=== PATIENT | male | born 1930 | race Caucasian/White ===

== ENCOUNTER → 2016-12-07 | Day surgery (SDC) | payer MEDICARE, BC ==
[~2016-12-07] MED LIST: AMARYL PO; AMARYL2 MG PO; AMBIEN10 MG PO; AMLODIPINE BESYL5 MG PO; ANEXSIA 7.5/3251 TA1 PO; ASPIRIN81 M1 PO; ASPIRIN81 M2 PO; BACTROBAN15 GM TOP; BRIMONIDINE TART5 ML OP; CATAPRES0.1 MG; CATAPRES0.1 MG PO; CELEBREX PO; COMBIGAN EYE DRO5 ML OU; DITROPAN5 MG PO; FISH OIL 1,0001 CAP PO; FISH OIL 1,0001 EAC1; FISH OIL 1,0001 EAC1 PO; GABAPENTIN800 MG PO; GLUCOPHAGE500 MG PO; GLUMETZA; HYDROCODON-ACE1 EAC1 PO; HYDROCODON-ACE1 EAC4; KEFLEX500 MG PO; LIPITOR PO; LIPITOR20 MG PO; LISINOPRIL PO; LISINOPRIL10 MG PO; MELOXICAM15 MG PO; METFORMIN HCL500 M1 PO; NEURONTIN PO; NORCO 7.5-3251 EACH PO; NORVASC PO; NORVASC10 MG PO; OXYCODON HCL-1 UDTAB; SERTRALINE HCL50 MG PO; VESICARE PO; VICODIN ES 7.51 EAC1 PO; VICODIN HP 10-1 EACH PO
--- NOTE | ~2016-12-07 | OR ---
Unit #: [id number] #: [id number] Patient: ALAN RABAGO [id number] [address] [place], [place] [address] [id number] O MR#: [id number] NAME: ALAN RABAGO ROOM: Date of Procedure: 12/07/2016 Admission Date: 12/07/2016 Surgeon: Joss Mathew M.D. : 1930 Attending Physician: Joss Mathew M.D. Primary Care Physician: Tony Bowser M.D. SURGERY CENTER OPERATIVE NOTE PROCEDURE PERFORMED Lumbar epidural steroid injection under x-ray guided needle placement. PREOPERATIVE DIAGNOSES 1. Acute lumbar radiculitis. 2. Spinal stenosis, lumbosacral spine. 3. Degenerative joint disease, lumbosacral spine. 4. Degenerative disk disease, lumbosacral spine. INDICATIONS FOR PROCEDURE The patient presents today with a longstanding history of chronic lumbar radicular pain which is generally fairly well managed medically with ongoing continuous conservative measures. He does however occasionally experience acute exacerbations, which to date have only responded to epidural steroid injections. His usual amount of relief is 60% to 80% for 6 to 8 weeks whereupon he will develop a crescendo pattern return of his pain to the point that approximately 10 to 12 weeks he begins to experience difficulties with activities of daily living. He presents today with just such a pattern of recurrence which has as per his usual pattern broken to his ongoing continuous conservative measures. After discussing risks and benefits of proceeding today with an L4-L5 lumbar epidural with return date of 03/15/2017, the patient agreed this would be the appropriate of action. He was advised that if he is asymptomatic at the time being scheduled appointment to simply not keep that appointment and to follow up and we could be of further service to him. He was further advised if he reached a point where he felt these shots were ineffective to simply stop taking them and to follow up with his primary and/or referring physician. DESCRIPTION OF PROCEDURE After these discussions, the patient was taken to the operating room, where he was prepped and draped in a sterile manner. Standard monitors were applied. He refused all forms of sedation and lumbar epidural space was accessed at L4-L5 level using loss of resistance technique and x-ray guidance. Needle placement was confirmed with injection of 2 mL of Omnipaque. There was good superior and inferior flow at this L4-L5 level. Following successful needle placement confirmation, the patient received an injectate containing 4 mL of normal saline and 80 mg of methylprednisolone. He tolerated this procedure well. He was discharged home with followup instructions, which include return dates as described above. Unit #: [id number] #: [id number] Patient: ALAN RABAGO Dictated by... Kb Kaur/shaina TD: 12/08/2016 01:22 JOB #: [id number] CC: Christopher Moralez M.D. SURGERY CENTER OPERATIVE NOTE Page 1 of 1 X Vasu Mathew MD X PROCEDURE OPERATIVE NOTE
== END | disposition home or self-care (01) ==
LOC: CCSC 08:15
DX: G89.29 Other chronic pain (principal); M51.17 Intervertebral disc disorders with radiculopathy, lumbosacral region; M47.27 Other spondylosis with radiculopathy, lumbosacral region; M48.07 Spinal stenosis, lumbosacral region; K21.9 Gastro-esophageal reflux disease without esophagitis; Z88.0 Allergy status to penicillin; Z88.5 Allergy status to narcotic agent; Z88.8 Allergy status to other drugs, medicaments and biological substances; Z96.653 Presence of artificial knee joint, bilateral; Z98.41 Cataract extraction status, right eye; Z98.42 Cataract extraction status, left eye; Z98.890 Other specified postprocedural states
CPT/HCPCS: 82947; J1040; J2250

== ENCOUNTER → 2017-02-23 | Outpatient (CLI) | payer MEDICARE, BC ==
--- NOTE | ~2017-02-23 | NM4 ---
[facility] A Service of [facility] & [facility] RADIOLOGY TEXT RESULTS PATIENT: ALAN RABAGO LOCATION: [facility] : 31 UNIT #: [id number] AGE: [address]: Christopher Moralez MD SEX: M ORDER DR: [id number] [facility] [address] [place], [place] [address] [id number] O MR#: [id number] Acc #: [id number] NAME: ALAN RABAGO. : 1930 SEX: M STUDY DATE/TIME: 02/23/2017 9:57 UNIT: [facility] ROOM: STUDY DESCRIPTION: WI Bone or Joint 3 Phase Study Attending Physician: Christopher Moralez M.D. Referring Physician: Christopher Moralez M.D. Ordering Physician: Christopher Moralez M.D. Primary Care Physician: Tony Bowser M.D. MEDICAL IMAGING REPORT This report is preliminary unless electronic signature is present EXAM Three-phase bone scan of the knees and whole-body bone scan 02/23/2017 HISTORY Order states pain status post right total knee replacement. Technologist reports right knee pain for 3 or 4 weeks. Can hardly walk. Fell in the yard 1.5 months ago. Bilateral knee replacements. Right knee replacement 1 year ago. Left knee replacement 2 years ago. History of prostate cancer diagnosed 10 years ago with radiation therapy. COMPARISON Bilateral knee radiographs 02/18/2017 and 09/30/2016. FINDINGS The patient received 30.3 mCi technetium 99m MDP intravenously and vascular flow, blood pool, and delayed images of the knees were obtained. Given the history of prostate cancer, whole body scan was also performed. The vascular flow phase is normal. Phase 2 imaging demonstrates abnormal asymmetric right knee uptake compared to the left, predominating in the periprosthetic tibia and probably the suprapatellar bursal region. The opposite left knee demonstrates some minimal patellofemoral compartment uptake. Delayed-phase imaging demonstrates moderate to marked right tibial periprosthetic uptake which correlates with a tibial periprosthetic lucency and is most compatible with tibial component loosening. There is mild posterior femoral uptake of the right knee probably in the lateral femoral condyle of indeterminate significance. The opposite left knee demonstrates mild medial periprosthetic uptake and mild patellofemoral compartment uptake. There is medial tibial STS. [facility] A Service of [facility] & [facility] RADIOLOGY TEXT RESULTS PATIENT: ALAN RABAGO LOCATION: [facility] : 31 UNIT #: [id number] AGE: [address]: Christopher Moralez MD SEX: M ORDER DR: periprosthetic lucency radiographically and findings could reflect early tibial component loosening on the left. Whole-body images show no evidence of metastatic disease. Mild increased uptake in the left lateral malleolar region is non specific. IMPRESSION 1. Phase 2 and phase 3 positive bone scan of the right knee with the appearance most compatible with tibial component loosening and synovitis. 2. Abnormal uptake in the patellofemoral and medial compartment of the left knee. Findings are concerning for early tibial component loosening on the left. 3. No evidence of metastatic disease. Dictated by... Trinidad Ward M.D. THIS IS AN ELECTRONICALLY VERIFIED REPORT Trinidad Ward M.D. at 02/24/2017 1:49 PM ELISSA/lexii TD: 02/24/2017 13:39 JOB #: [id number] MEDICAL IMAGING REPORT Page 1 of 1 COPY
== END | disposition home or self-care (01) ==
LOC: CNUC 09:10
DX: M25.561 Pain in right knee (principal); R94.8 Abnormal results of function studies of other organs and systems; Z96.651 Presence of right artificial knee joint
CPT/HCPCS: 78315; A9503

== ENCOUNTER → 2017-04-21 | Outpatient (CLI) | payer MEDICARE, BC ==
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
--- NOTE | ~2017-04-21 | CR63 ---
[facility] A Service of [facility] & [facility] RADIOLOGY TEXT RESULTS PATIENT: ALAN RABAGO LOCATION: [facility] : 31 UNIT #: [id number] AGE: [address]: Christopher Moralez MD SEX: M ORDER DR: [id number] [facility] [address] [place], [place] [address] [id number] O MR#: [id number] Acc #: [id number] NAME: ALAN RABAGO. : 1930 SEX: M STUDY DATE/TIME: 04/21/2017 10:47 UNIT: [facility] ROOM: STUDY DESCRIPTION: CR Chest 2 View Attending Physician: Christopher Moralez M.D. Referring Physician: Christopher Moralez M.D. Ordering Physician: Christopher Moralez M.D. Primary Care Physician: Tony Bowser M.D. MEDICAL IMAGING REPORT This report is preliminary unless electronic signature is present EXAM Chest 04/21/2017, [facility] HISTORY 86-year-old male patient preop clearance for failed components right total knee arthroplasty. Patient for revision. COMPARISON Chest 05/08/2015 FINDINGS Two-view chest demonstrates mild cardiomegaly and generalized thoracic aortic ectasia. Hilar structures are preserved. Bilateral lungs are clear. Costophrenic angles are obscured bilaterally. IMPRESSION Atherosclerotic cardiovascular disease with stable cardiomegaly and stable thoracic aortic ectasia. No acute finding. Dictated by... Yandel Blake M.D. THIS IS AN ELECTRONICALLY VERIFIED REPORT Yandel Blake M.D. at 04/22/2017 8:06 AM JBB/joey TD: 04/21/2017 20:56 JOB #: [id number] MEDICAL IMAGING REPORT Page 1 of 1 COPY
--- NOTE | ~2017-04-21 | EKG ---
PATIENT: ALAN RABAGO UNIT #: [id number] Ventricular Rate: 61 BPM Atrial Rate: 61 BPM P-R Interval: 194 ms QRS Duration: 90 ms Q-T Interval: 424 ms QTC Calculation(Bezet): 426 ms Calculated R Winfield: -178 degrees Calculated T W[place]: 152 degrees Diagnosis Line: Normal sinus rhythm Diagnosis Line: Right superior axis deviation Diagnosis Line: Abnormal ECG Diagnosis Line: When compared with ECG of 13-JUN-2014 09:00, Diagnosis Line: Questionable change in QRS axis Diagnosis Line: Criteria for Inferior infarct are no longer Diagnosis Line: Present Diagnosis Line: T wave inversion no longer evident in Inferior Diagnosis Line: leads Diagnosis Line: T wave inversion now evident in Lateral leads Diagnosis Line: Confirmed by JIE CASTELLANOS MD ([id number]) on Diagnosis Line: 04/23/2017 10:49:11 AM INTERPRETING MD: EMANUEL SILVA
[2017-04-21 09:08] LABS: URINE APPEARANCE CLEAR; URINE BILIRUBIN NEG (NEG); URINE BLOOD NEG (NEG); URINE COLOR YELLOW; URINE GLUCOSE NEG (NEG); URINE KETONE NEG (NEG); URINE LEUKOCYTE ESTERASE NEG (NEG); URINE NITRATE NEG (NEG); URINE PROTEIN NEG (NEG); URINE SPECIFIC GRAVITY 1.018 (1.003-1.035); URINE UROBILINOGEN 0.2 MG/DL (NEG)
[2017-04-21 09:12] LABS: HEMATOCRIT 37.8 % (38.0-50.0); HEMOGLOBIN 12.3 gm/dL (13.0-16.0); MEAN CELL VOLUME 84.2 FL (83-96); MEAN CORPUSCULAR HEMOGLOBIN 27.3 PG (28-34); MEAN CORPUSCULAR HGB CONC 32.5 g/dL (30-36); MEAN PLATELET VOLUME 7.6 FL (6.5-11.5); RED BLOOD COUNT 4.49 X10e (3.90-5.60); RED CELL DISTRIBUTION WIDTH 15.6 % (11.0-15.5); URINE SOURCE CLEAN CATCH
[2017-04-21 09:13] LABS: CULTURE INDICATED? NO
[2017-04-21 09:30] LABS: PROTHROMBIN TIME (PATIENT) 10.9 SECONDS (10.0-11.7)
[2017-04-21 09:39] LABS: ALBUMIN SERUM 3.7 g/dL (3.5-5.0); BILIRUBIN,TOTAL 0.2 mg/dL (0.2-2.0); BUN/CREATININE RATIO 21.42; CREATININE SERUM 1.4 mg/dL (0.6-1.4); GLOM FILT RATE Estimated 45.5 mL/min (>60); PROTEIN TOTAL SERUM 7.3 g/dL (6.0-8.3)
== END | disposition home or self-care (01) ==
LOC: CAMB 08:00
PROVIDERS: Orthopaedic Surgery
DX: Z01.818 Encounter for other preprocedural examination (principal); T84.9XXA Unspecified complication of internal orthopedic prosthetic device, implant and graft, initial encounter; I25.10 Atherosclerotic heart disease of native coronary artery without angina pectoris; I51.7 Cardiomegaly; I77.810 Thoracic aortic ectasia
CPT/HCPCS: 36415; 71020; 80053; 81003; 83036; 85027; 85610; 85652; 86140; 86850; 86900; 86901; 87070; 93005